=== PATIENT | female | born 1940 | race Caucasian/White ===

== ENCOUNTER 2017-03-18 05:29 | Day surgery (SDC) | payer OTHER ==
[~2017-03-18] VITALS: Ht 152.4 cm; Wt 43.1 kg
--- NOTE | ~2017-03-18 | S ---
[facility] [place] [address] SURGICAL PATH RPT PROCEDURE Name: OMERO BUTLER [facility] [id number] Admission: 03/18/17 Date of : 40 Discharge: 03/18/17 Report #: [id number] Path Case #: [id number] PATHOLOGY REPORT COLLECTION DATE: 03/18/2017 RECEIVED DATE: 03/18/2017 SUBMITTING PHYS: Dr. Steve Jung OTHER PHYS: SPECIMEN(S) RECEIVED: A.Left lower lid B.Additional medial margin left lower lid C.Additional medial margin left lower lid * * * * * * * * * * * * FINAL DIAGNOSIS: A. Skin, left lower lid lesion, excision: - BASAL CELL CARCINOMA. - PRESENT EXTENSIVELY AT MEDIAL MARGIN WITHIN DERMIS. - Lateral margin and deep margin free of malignancy. B. Skin, left lower lid, additional medial margin, biopsy: - TUMOR PRESENT WITH CAUTERY AT NEW MARGIN. C. Skin, left lower lid, additional medial margin, biopsy: - Negative for malignancy. - Mild chronic inflammation. (IUV:clau;03/19/2017) PATHOLOGIST: Mary Rutherford M.D. REPORT ELECTRONICALLY SIGNED BY: Mary Rutherford M.D. DATE/TIME: 03/19/2017 13:53 * * * * * * * * * * * * GROSS PATHOLOGY: A. Received fresh from the OR labeled with the patient's name, and "left lower lid lesion", consisting of a triangular excision of skin measuring 0.7 x 0.5 x 0.3 cm. It is oriented as superior lateral, inferior and medial, these are assigned to 12:00, 3:00, 6:00 and 9:00, respectively. Specimen is sectioned into three pieces and submitted for frozen section in entirety as FSA1, subsequently submitted for permanent sections as A1. B. Received fresh from the OR labeled with the patient's name, and "additional medial margin left lower lid lesion", consisting of a thin strip of skin measuring 0.5 x 0.2 x 0.2 cm. The specimen is oriented as superior and inferior with the real new margin inked with blue ink by the surgeon. At this point, the superior margin is additionally tagged with green ink and the specimen is submitted en [address] [address] SURGICAL PATH RPT PROCEDURE Name: OMERO BUTLER Adithya Room #: [facility].#: [id number] Admission: 03/18/17 Date of : 40 Discharge: 03/18/17 Report #: [id number] Path Case #: [id number] face for frozen section as FSB1, subsequently submitted for permanent sections as B1. C. Received fresh from the OR labeled with the patient's name, and "additional medial margin", consisting of a 0.8 x 0.5 x 0.3 cm specimen additionally tagged as superior, inferior as well as tarsal additionally with two blue dots indicating the real new margin. The superior half is inked green, the inferior half is inked blue, at this point the specimen is submitted en face for frozen section as FSC1, subsequently submitted for permanent sections as C1. (IUV:clau;03/18/2017) FROZEN SECTION DIAGNOSIS: IUV; 03/18/2017 FSA1, left lower lid lesion, excision: - BASAL CELL CARCINOMA, present at medial margin. FSB1, additional medial margin left lower lid, excision: - Present at new margin. FSC1, additional medial margin left lower lid, excision: - Negative for invasive carcinoma. These findings are discussed with Dr. Steve Jung in OR-6 at [facility] and a written report is placed in the patient's chart. Testing performed by [facility] at [address] , [place] [address] CLINICAL HISTORY: None Provided INITIAL CPT CODE(S): A; 01721, 72239 B; 62524, 02556 C; 28007, 93750 Professional services performed by [facility] at [address] [place], [place] [address] Technical services performed by [facility] at [address] [place] [address], [address] [address]. [facility] [address] [place] [address] PHONE: [phone] DIRECTOR: Parish Mcnulty M.D. [address] [address] SURGICAL PATH RPT PROCEDURE Name: OMERO BUTLER Room #: DEP [facility] Susan#: [id number] Admission: 03/18/17 Date of : 40 Discharge: 03/18/17 Report #: [id number] Path Case #: [id number] * * * END OF REPORT * * *
[~2017-03-18 05:29] MED LIST: ROCALTROL0.5 MCG PO; VITAMIN D1000 UNI1 PO
[2017-03-18 07:30] VITALS: BP 140/72
== END 2017-03-18 10:00 | disposition home or self-care (01) ==
LOC: OR 05:29 → TBA 05:29 → OR 10:00
DX: C44.119 Basal cell carcinoma of skin of left eyelid, including canthus (principal); C44.319 Basal cell carcinoma of skin of other parts of face
CPT/HCPCS: 50010; 50101; 50398; 51636; 56528; 56531; 62110; 62850; 70005